=== PATIENT | male | born 1955 | race Caucasian/White ===

== ENCOUNTER 2022-10-17 14:16 | Inpatient (IN) | payer OTHER ==
[~2022-10-17] VITALS: Ht 180.3 cm; Wt 95.3 kg
[2022-10-17] MEDS ORDERED: ONDANSETRON 4MG TAB PO PRN (14:20)
[2022-10-17 16:50] VITALS: BP 117/71
[2022-10-17] MEDS ORDERED: ODOR100T3 PO (17:52)
[2022-10-17] MEDS ORDERED: METO1TAB87 PO (17:52)
[2022-10-17] MEDS ORDERED: LATA0.0015 OU (17:52)
[2022-10-17] MEDS ORDERED: ALBU2.5V10 INH (17:52)
[2022-10-17] MEDS ORDERED: BACL5TAB2 PO (17:52)
[2022-10-17] MEDS ORDERED: OMEG10002 PO (17:52)
[2022-10-17] MEDS ORDERED: COMBAER6 INH (17:52)
[2022-10-17] MEDS ORDERED: OXYC-517 PO (17:52)
[2022-10-17] MEDS ORDERED: LISI10TA22 PO (17:52)
[2022-10-17] MEDS ORDERED: ATOR40TA75 PO (17:52)
[2022-10-17] MEDS ORDERED: HOME MED LIST COMPLETE! XX SCH (17:55)
[2022-10-17 20:00] VITALS: BP 155/85
[2022-10-17] MEDS: DOCUSATE SODIUM 100MG CAPSULE PO SCH (20:58)
[2022-10-17] MEDS: ACETAMINOPHEN 500 MG TAB PO SCH (20:59)
[2022-10-17] MEDS ORDERED: LATANOPROST 0.005% OPHTH SOLN 2.5 ML OU SCH (21:00)
[2022-10-17] MEDS: BACLOFEN 5MG PER 1/2 TABLET PO SCH (21:00)
[2022-10-17] MEDS: METOPROLOL TART 25 MG TABLET PO SCH (21:00)
[2022-10-17] MEDS ORDERED: ATORVASTATIN 20 MG TAB PO SCH (21:00)
[2022-10-17] MEDS: PANTOPRAZOLE 40MG TAB (PROTONIX) PO SCH (21:00)
[2022-10-17] MEDS ORDERED: BISACODYL 10MG SUPP PR SCH (21:00)
[2022-10-17] MEDS ORDERED: SENNA 8.6 MG TAB (SENOKOT) PO SCH (21:00)
[2022-10-17] MEDS: REMEDY PHYTOPLEX Z-GUARD PASTE 113GM TUBE (FROM STOREROOM PRODUCT) TOP SCH (21:00)
[2022-10-17] MEDS: oxyCODONE 5MG TAB PO PRN (21:01)
[2022-10-17] MEDS: COMBIVENT RESPIMAT 100-20MCG INHALER 4GM INH SCH (21:12)
[2022-10-18 06:00] VITALS: BP 130/65
[2022-10-18] MEDS: COMBIVENT RESPIMAT 100-20MCG INHALER 4GM INH SCH (07:17)
[2022-10-18] MEDS ORDERED: TIOTROPIUM INHALER/CAPSULE (SPIRIVA) INH SCH (08:00)
[2022-10-18 08:04] LABS: BASO % 0.3 % (0.0-1.0); EOS # 0.2 10^3/uL (0.0-0.5); EOS % 1.4 % (0.0-3.0); HEMATOCRIT 44.8 % (42.0-52.0); HEMOGLOBIN 14.6 g/dl (13.5-17.5); LYMPH # 1.9 10^3/uL (1.5-5.0); LYMPH % 15.6 % (24.0-44.0); MEAN CORPUSCULAR HEMOGLOBIN 30.7 pg (27.0-33.0); MEAN CORPUSCULAR HGB CONC 32.6 g/dl (32.0-36.5); MEAN CORPUSCULAR VOLUME 94.1 fl (80.0-96.0); MONO # 1.3 10^3/uL (0.0-0.8); MONO % 10.3 % (2.0-8.0); NEUTROPHILS # 8.7 10^3/uL (1.5-8.5); NEUTROPHILS % 71.9 % (36.0-66.0); PLATELET COUNT, AUTOMATED 279 10^3/uL (150-450); RED BLOOD COUNT 4.76 10^6/uL (4.30-6.10); WHITE BLOOD COUNT 12.1 10^3/uL (4.0-10.0)
[2022-10-18] MEDS: PANTOPRAZOLE 40MG TAB (PROTONIX) PO SCH (08:11)
[2022-10-18] MEDS: BACLOFEN 5MG PER 1/2 TABLET PO SCH (08:11)
[2022-10-18] MEDS: ACETAMINOPHEN 500 MG TAB PO SCH (08:11)
[2022-10-18] MEDS: oxyCODONE 5MG TAB PO PRN (08:11)
[2022-10-18 08:12] VITALS: BP 110/73
[2022-10-18] MEDS: METOPROLOL TART 25 MG TABLET PO SCH (08:12)
[2022-10-18] MEDS: DOCUSATE SODIUM 100MG CAPSULE PO SCH (08:12)
[2022-10-18] MEDS: REMEDY PHYTOPLEX Z-GUARD PASTE 113GM TUBE (FROM STOREROOM PRODUCT) TOP SCH (08:13)
[2022-10-18 08:18] LABS: ALBUMIN 2.8 G/DL (3.2-5.2); ALKALINE PHOSPHATASE 79 U/L (46-116); ALT/SGPT 50 U/L (7.0-40); AST/SGOT 35 U/L (<34); BILIRUBIN,TOTAL 0.7 MG/DL (0.3-1.2); BLOOD UREA NITROGEN 28 MG/DL (9-23); CALCIUM LEVEL 9.2 MG/DL (8.3-10.6); CARBON DIOXIDE LEVEL 25 MMOL/L (20-31); CHLORIDE LEVEL 105 MMOL/L (98-107); CREATININE FOR GFR 0.68 MG/DL (0.70-1.30); GLOMERULAR FILTRATION RATE > 60.0 (>49); GLUCOSE, FASTING 105 MG/DL (74-106); POTASSIUM SERUM 4.5 MMOL/L (3.5-5.1); SODIUM LEVEL 141 MMOL/L (136-145)
[2022-10-18] MEDS ORDERED: oxyCODONE 5MG TAB PO PRN (10:20)
[2022-10-18] MEDS ORDERED: oxyCODONE 5MG TAB PO SCH (12:00)
[2022-10-18 12:52] LABS: INR 0.95; PROTHROMBIN TIME 12.9 SECONDS (12.5-14.5)
[2022-10-18] MEDS ORDERED: guaiFENesin 200 MG TAB PO SCH (16:00)
[2022-10-19] MEDS ORDERED: BISACODYL 10MG SUPP PR SCH (07:00)
[2022-10-20 08:41] LABS: HEPATITIS B SURFACE ANTIGEN NEGATIVE (NEGATIVE)
[2022-10-20 09:02] LABS: HEPATITIS C VIRUS ABY INDEX 0.1 INDEX (<0.8)
[2022-10-20 09:03] LABS: HEPATITIS B CORE ANTIBODY IGM NEGATIVE (NEGATIVE)
== END 2022-10-18 14:00 | disposition left against medical advice (07) | DRG 862 ==
LOC: M PM&R 16:57
PROVIDERS: ADMIT Physical Medicine & Rehabilitation; ATTEND Physical Medicine & Rehabilitation
DX: S14.13 Anterior cord syndrome of cervical spinal cord (principal); G82.52 Quadriplegia, C1-C4 incomplete; M50.01 Cervical disc disorder with myelopathy, high cervical region; K59.2 Neurogenic bowel, not elsewhere classified; N31.9 Neuromuscular dysfunction of bladder, unspecified; M48.02 Spinal stenosis, cervical region; J44.9 Chronic obstructive pulmonary disease, unspecified; I10 Essential (primary) hypertension; F17.200 Nicotine dependence, unspecified, uncomplicated; R26.89 Other abnormalities of gait and mobility; E11.9 Type 2 diabetes mellitus without complications; I25.2 Old myocardial infarction; I25.10 Atherosclerotic heart disease of native coronary artery without angina pectoris; G83.24 Monoplegia of upper limb affecting left nondominant side; H40.059 Ocular hypertension, unspecified eye; E78.5 Hyperlipidemia, unspecified; G83.21 Monoplegia of upper limb affecting right dominant side; G47.33 Obstructive sleep apnea (adult) (pediatric); R74.01 Elevation of levels of liver transaminase levels; K59.00 Constipation, unspecified; Z74.1 Need for assistance with personal care; Z74.09 Other reduced mobility; Z95.1 Presence of aortocoronary bypass graft; Z79.899 Other long term (current) drug therapy